=== PATIENT | female | born 1970 | race Caucasian/White ===

== ENCOUNTER 2017-08-02 18:40 | Inpatient (IN) | payer MEDICARE, MEDICAID ==
[~2017-08-02] VITALS: Ht 162.6 cm; Wt 89.9 kg
[~2017-08-02 18:40] MED LIST: ALBU18HF2 IH; ATOR20TA PO; BUDE10.22 INH; CARI350T PO; CLON-529 PO; DIAZ5TAB4 PO; DOCU100C40 PO; METO5TAB98 PO; MOME17SP BOTHNARES; NORCO10T PO; NORE1TAB96 PO; OMEP-84 PO; PROP10TA10 PO; QUET-1 PO; SENN-161 PO; SUMA100T PO; TRAZ-146 PO; VILA40TA PO; ZAFI20TA13 PO; ZES10T PO
[2017-08-02] MEDS ORDERED: methylPREDNISolone sod succ 125mg/2ml vial IV ONE (18:50)
[2017-08-02] MEDS ORDERED: normal saline 1000ML IV soln IVB ONE (18:50)
[2017-08-02] MEDS ORDERED: albuterol 2.5 MG/3 ML nebule NEB ONE ×2 (18:50→20:50)
[2017-08-02] MEDS ORDERED: ipratropium/albuterol 3ml nebule NEB ONE (18:50)
[2017-08-02 19:01] LABS: BASOPHILS # (AUTO) 0.1 X10'3 (0-0.2); BASOPHILS % (AUTO) 0.8 % (0-1); EOSINOPHILS # (AUTO) 0.2 X10'3 (0-0.9); EOSINOPHILS % (AUTO) 1.9 % (0-6); HEMATOCRIT 40.7 % (35.0-45.0); HEMOGLOBIN 13.8 g/dl (12.0-16.0); LYMPHOCYTES # (AUTO) 5.8 X10'3 (1.1-4.8); LYMPHOCYTES % (AUTO) 46.1 % (21-51); MEAN CORPUSCULAR HEMOGLOBIN 29.9 PG (27.0-31.0); MEAN CORPUSCULAR HGB CONC 33.9 % (33.0-36.5); MEAN CORPUSCULAR VOLUME 88.3 FL (78-98); MEAN PLATELET VOLUME 6.5 FL (7.4-10.4); MONOCYTES # (AUTO) 0.7 X10'3 (0-0.9); MONOCYTES % (AUTO) 5.9 % (2-12); NEUTROPHILS # (AUTO) 5.7 X10'3 (1.8-7.7); NEUTROPHILS % (AUTO) 45.3 % (42-75); PLATELET COUNT 360 X10'3 (140-440); RED BLOOD COUNT 4.61 X10'6 (4.20-5.60); RED CELL DISTRIBUTION WIDTH 14.1 % (11.5-14.5); WHITE BLOOD COUNT 12.5 X10'3 (4.5-11.0)
[2017-08-02 19:12] LABS: INR 0.9 INR; PARTIAL THROMBOPLASTIN TIME 24 SECONDS (22-32); PROTHROMBIN TIME 9.4 SECONDS (9.0-12.0)
[2017-08-02 19:15] LABS: ALANINE AMINOTRANSFERASE 19 U/L (12-78); ALBUMIN 3.1 G/DL (3.4-5.0); ALBUMIN/GLOBULIN RATIO 0.7 (1.1-1.5); ALKALINE PHOSPHATASE 85 IU/L (46-116); ANION GAP 14 (8-16); ASPARTATE AMINO TRANSFERASE 14 U/L (10-37); BILIRUBIN,TOTAL 0.2 MG/DL (0.1-1.0); BLOOD UREA NITROGEN 8 MG/DL (7-18); BUN/CREATININE RATIO 8.1 (6.6-38.0); CALCIUM 8.8 MG/DL (8.5-10.1); CHLORIDE 104 MMOL/L (99-107); CREATININE 0.99 MG/DL (0.40-0.90); GLUCOSE 133 MG/DL (70-104); POTASSIUM 3.4 MMOL/L (3.5-5.1); SODIUM 140 MMOL/L (135-145); TOTAL CARBON DIOXIDE 22.4 MMOL/L (24-32); TOTAL PROTEIN 7.7 G/DL (6.4-8.2); eGFR 60 ML/MIN
[2017-08-02] MEDS ORDERED: ondansetron/PF 4mg/2ml inj IV ONE (20:00)
[2017-08-02] MEDS ORDERED: CYAN10007 (21:04)
[2017-08-02] MEDS ORDERED: LAMO150T2 PO (21:04)
[2017-08-02] MEDS ORDERED: ALBU2.5V10 (21:04)
[2017-08-02] MEDS ORDERED: TRAZ-146 PO (21:04)
[2017-08-02] MEDS ORDERED: QUET25TA PO ×2 (21:04)
[2017-08-02] MEDS ORDERED: ALBU18HF2 INH (21:04)
[2017-08-02] MEDS ORDERED: BUDE10.2 INH (21:04)
[2017-08-02] MEDS ORDERED: CHOL10002 PO (21:04)
[2017-08-02] MEDS ORDERED: METF500T PO (21:04)
[2017-08-02] MEDS ORDERED: DIAZ5TAB4 PO (21:04)
[2017-08-02] MEDS ORDERED: MOME17SP BOTHNARES (21:04)
[2017-08-02] MEDS ORDERED: NORE-28 (21:05)
[2017-08-02] MEDS ORDERED: potassium Cl 40MEQ/NS 500ml 500 ML IV PRN ×2 (21:35)
[2017-08-02] MEDS ORDERED: acetaminophen 325mg tablet PO PRN ×2 (21:35)
[2017-08-02] MEDS ORDERED: magnesium hydroxide 30ml (MOM) UD suspension PO PRN (21:35)
[2017-08-02] MEDS ORDERED: mag hydrox/Alum hydrox/simeth 30ml oral suspension PO PRN (21:35)
[2017-08-02] MEDS ORDERED: dextrose 50%-water 50ml dispensing syringe IV PRN ×2 (21:35)
[2017-08-02] MEDS ORDERED: glucagon, human recombinant 1mg kit SUBCUT PRN (21:35)
[2017-08-02] MEDS ORDERED: ondansetron/PF 4mg/2ml inj IV PRN (21:35)
[2017-08-02] MEDS ORDERED: potassium Cl 20 mEq SR tablet PO PRN ×2 (21:35)
[2017-08-02] MEDS ORDERED: MESSAGE TO PHARMACY PO ONE (21:35)
[2017-08-02] MEDS ORDERED: ipratropium/albuterol 3ml nebule NEB PRN (21:35)
[2017-08-02] MEDS ORDERED: dextrose ORAL solution 15 GM/59 ML bottle PO PRN ×2 (21:35)
[2017-08-02] MEDS ORDERED: potassium Cl 20 mEq SR tablet PO STA (21:35)
[2017-08-02] MEDS ORDERED: levoFLOXACIN-Levaquin 500mg/D5 100 ML IV ONE (21:40)
[2017-08-02] MEDS: HYDROcodone/acetaminophen 10/325mg tab PO PRN (22:20)
[2017-08-02] MEDS: normal saline 1000ml 1,000 ML IV SCH (22:20)
[2017-08-02 22:40] VITALS: BP 116/70
[2017-08-02 23:56] LABS: HEMOGLOBIN A1C 6.1 % (4.5-6.2)
[2017-08-03] MEDS: diazepam 5mg tablet PO PRN ×3 (00:10→20:56)
[2017-08-03] MEDS: atorvastatin 20mg tablet PO SCH ×2 (00:10→20:56)
[2017-08-03] MEDS: quetiapine 100mg tablet PO SCH ×2 (00:10→20:56)
[2017-08-03] MEDS: traZODone 50mg tablet PO SCH ×2 (00:10→20:57)
[2017-08-03] MEDS: cloNIDine 0.1 mg tablet PO SCH ×3 (00:11→21:47)
[2017-08-03] MEDS: propranolol 10mg tablet PO SCH ×3 (00:12→18:45)
[2017-08-03] MEDS: methylPREDNISolone sod succ 125mg/2ml vial IV SCH ×4 (01:41→18:46)
[2017-08-03] MEDS: HYDROcodone/acetaminophen 10/325mg tab PO PRN ×3 (06:58→18:45)
[2017-08-03] MEDS: fluticasone nasal spray 16GM bottle NS SCH (07:17)
[2017-08-03] MEDS: enoxaparin 40mg/0.4ml syringe SUBCUT SCH (07:17)
[2017-08-03] MEDS: sennosides 8.6mg tablet PO SCH (07:18)
[2017-08-03] MEDS: montelukast 10mg tablet PO SCH (07:18)
[2017-08-03] MEDS: lisinopril 5mg tablet PO SCH (07:18)
[2017-08-03] MEDS: pantoprazole 40mg Tablet.DR PO SCH (07:19)
[2017-08-03] MEDS: lamoTRIgine 100mg tablet PO SCH (07:19)
[2017-08-03] MEDS: QUEtiapine 25mg tablet PO SCH ×2 (07:19→11:51)
[2017-08-03] MEDS: nicotine 21mg patch - 24 hr TD SCH (07:20)
[2017-08-03 07:30] VITALS: BP 120/76
[2017-08-03 07:51] LABS: BASOPHILS % (AUTO) 0.2 % (0-1); EOSINOPHILS # (AUTO) 0.1 X10'3 (0-0.9); EOSINOPHILS % (AUTO) 1.1 % (0-6); HEMATOCRIT 38.6 % (35.0-45.0); HEMOGLOBIN 12.9 g/dl (12.0-16.0); LYMPHOCYTES # (AUTO) 1.5 X10'3 (1.1-4.8); LYMPHOCYTES % (AUTO) 19.7 % (21-51); MEAN CORPUSCULAR HEMOGLOBIN 30.1 PG (27.0-31.0); MEAN CORPUSCULAR HGB CONC 33.5 % (33.0-36.5); MEAN CORPUSCULAR VOLUME 89.6 FL (78-98); MEAN PLATELET VOLUME 7.3 FL (7.4-10.4); MONOCYTES # (AUTO) 0.1 X10'3 (0-0.9); MONOCYTES % (AUTO) 1.1 % (2-12); NEUTROPHILS % (AUTO) 77.9 % (42-75); PLATELET COUNT 301 X10'3 (140-440); WHITE BLOOD COUNT 7.7 X10'3 (4.5-11.0)
[2017-08-03] MEDS ORDERED: NORETHINDRONE ETHINYL ESTRAD PO SCH ×2 (08:00)
[2017-08-03] MEDS ORDERED: ZAFIRLUKAST 20 MG PO SCH (08:00)
[2017-08-03] MEDS ORDERED: docusate sod 100mg capsule PO PRN (08:00)
[2017-08-03] MEDS ORDERED: Vilazodone Hydrochloride (Viibryd) 40 MG PO SCH (08:00)
[2017-08-03 08:02] LABS: ALBUMIN 2.8 G/DL (3.4-5.0); ANION GAP 11 (8-16); BLOOD UREA NITROGEN 7 MG/DL (7-18); BUN/CREATININE RATIO 7.9 (6.6-38.0); CALCIUM 8.2 MG/DL (8.5-10.1); CHLORIDE 106 MMOL/L (99-107); CREATININE 0.89 MG/DL (0.40-0.90); GLUCOSE 170 MG/DL (70-104); MAGNESIUM 1.7 MG/DL (1.5-2.4); POTASSIUM 4.2 MMOL/L (3.5-5.1); SODIUM 140 MMOL/L (135-145); TOTAL CARBON DIOXIDE 22.6 MMOL/L (24-32); eGFR 68 ML/MIN
[2017-08-03] MEDS: lamoTRIgine 25mg tablet PO SCH (08:09)
[2017-08-03] MEDS: insulin Lispro (HumaLOG) vial - multi-dose SQ SCH ×3 (08:29→18:47)
[2017-08-03 10:00] VITALS: BP 135/75
[2017-08-03] MEDS: normal saline 1000ml 1,000 ML IV SCH ×2 (10:30→20:56)
[2017-08-03 18:00] VITALS: BP 133/66
[2017-08-03] MEDS ORDERED: famotidine/PF 10 mg/ml inj IV SCH (20:20)
[2017-08-03] MEDS ORDERED: diphenhydrAMINE 50 mg/ml inj IV PRN (20:20)
[2017-08-03] MEDS ORDERED: Insulin Detemir pen SQ SCH (21:00)
[2017-08-03] MEDS ORDERED: levoFLOXACIN 750MG TABLET PO SCH (22:00)
[2017-08-03 22:01] VITALS: BP 131/78
[2017-08-04] MEDS: methylPREDNISolone sod succ 125mg/2ml vial IV SCH (02:21)
[2017-08-04] MEDS: normal saline 1000ml 1,000 ML IV SCH ×2 (05:20→06:34)
[2017-08-04 06:00] VITALS: BP 100/64
[2017-08-04] MEDS: nicotine 21mg patch - 24 hr TD SCH (06:28)
[2017-08-04] MEDS: HYDROcodone/acetaminophen 10/325mg tab PO PRN ×2 (06:28→14:52)
[2017-08-04] MEDS: pantoprazole 40mg Tablet.DR PO SCH (06:28)
[2017-08-04 06:34] LABS: BASOPHILS % (AUTO) 0.2 % (0-1); EOSINOPHILS # (AUTO) 0.2 X10'3 (0-0.9); EOSINOPHILS % (AUTO) 1.3 % (0-6); HEMATOCRIT 37.7 % (35.0-45.0); HEMOGLOBIN 12.7 g/dl (12.0-16.0); LYMPHOCYTES # (AUTO) 1.6 X10'3 (1.1-4.8); LYMPHOCYTES % (AUTO) 12.1 % (21-51); MEAN CORPUSCULAR HEMOGLOBIN 29.8 PG (27.0-31.0); MEAN CORPUSCULAR HGB CONC 33.6 % (33.0-36.5); MEAN CORPUSCULAR VOLUME 88.5 FL (78-98); MEAN PLATELET VOLUME 7.1 FL (7.4-10.4); MONOCYTES # (AUTO) 0.5 X10'3 (0-0.9); MONOCYTES % (AUTO) 3.4 % (2-12); NEUTROPHILS # (AUTO) 11.3 X10'3 (1.8-7.7); PLATELET COUNT 275 X10'3 (140-440); RED BLOOD COUNT 4.25 X10'6 (4.20-5.60); RED CELL DISTRIBUTION WIDTH 14.2 % (11.5-14.5); WHITE BLOOD COUNT 13.6 X10'3 (4.5-11.0)
[2017-08-04 06:47] LABS: ALBUMIN 2.7 G/DL (3.4-5.0); ANION GAP 7 (8-16); BLOOD UREA NITROGEN 9 MG/DL (7-18); BUN/CREATININE RATIO 11.5 (6.6-38.0); CALCIUM 8.6 MG/DL (8.5-10.1); CHLORIDE 109 MMOL/L (99-107); CREATININE 0.78 MG/DL (0.40-0.90); GLUCOSE 176 MG/DL (70-104); POTASSIUM 4.2 MMOL/L (3.5-5.1); SODIUM 140 MMOL/L (135-145); eGFR 79 ML/MIN
[2017-08-04] MEDS: insulin Lispro (HumaLOG) vial - multi-dose SQ SCH ×2 (09:35→14:49)
[2017-08-04] MEDS: lisinopril 5mg tablet PO SCH (09:36)
[2017-08-04] MEDS: montelukast 10mg tablet PO SCH (09:36)
[2017-08-04] MEDS: QUEtiapine 25mg tablet PO SCH ×2 (09:36→12:33)
[2017-08-04] MEDS: lamoTRIgine 100mg tablet PO SCH (09:36)
[2017-08-04] MEDS: lamoTRIgine 25mg tablet PO SCH (09:36)
[2017-08-04] MEDS: cloNIDine 0.1 mg tablet PO SCH (09:38)
[2017-08-04] MEDS: diazepam 5mg tablet PO PRN (09:38)
[2017-08-04] MEDS: propranolol 10mg tablet PO SCH (09:38)
[2017-08-04] MEDS: sennosides 8.6mg tablet PO SCH (09:38)
[2017-08-04] MEDS: fluticasone nasal spray 16GM bottle NS SCH (09:42)
[2017-08-04] MEDS: enoxaparin 40mg/0.4ml syringe SUBCUT SCH (09:42)
[2017-08-04 09:56] VITALS: BP 129/74
[2017-08-04] MEDS ORDERED: LEVO500T2 PO (15:05)
[2017-08-04] MEDS ORDERED: ROBDML PO (15:05)
[2017-08-04] MEDS ORDERED: methylPREDNISolone sod succ 125mg/2ml vial IV SCH (20:00)
[2017-08-05] MEDS ORDERED: LACTOBACILLUS RHAMNOSUS GG 15 billion unit sprinkle caps PO SCH (07:30)
== END 2017-08-04 17:30 | disposition home or self-care (01) | DRG 189 ==
LOC: ER 18:41 → ED HOLD 21:32 → ORTHO 4S 22:48
PROVIDERS: ADMIT Internal Medicine; ATTEND Internal Medicine
DX: J96.01 Acute respiratory failure with hypoxia (principal); J44.1 Chronic obstructive pulmonary disease with (acute) exacerbation; E11.9 Type 2 diabetes mellitus without complications; E78.5 Hyperlipidemia, unspecified; E87.6 Hypokalemia; F31.9 Bipolar disorder, unspecified; E66.9 Obesity, unspecified; F41.9 Anxiety disorder, unspecified; M54.9 Dorsalgia, unspecified; E28.2 Polycystic ovarian syndrome; I10 Essential (primary) hypertension; K21.9 Gastro-esophageal reflux disease without esophagitis; F17.210 Nicotine dependence, cigarettes, uncomplicated; F12.90 Cannabis use, unspecified, uncomplicated; Z98.891 History of uterine scar from previous surgery; Z88.1 Allergy status to other antibiotic agents; Z88.2 Allergy status to sulfonamides; Z79.899 Other long term (current) drug therapy; Z79.01 Long term (current) use of anticoagulants; Z79.84 Long term (current) use of oral hypoglycemic drugs; Z79.82 Long term (current) use of aspirin; Z68.34 Body mass index [BMI] 34.0-34.9, adult; Z86.14 Personal history of Methicillin resistant Staphylococcus aureus infection; Z82.5 Family history of asthma and other chronic lower respiratory diseases; Z83.3 Family history of diabetes mellitus; Z82.49 Family history of ischemic heart disease and other diseases of the circulatory system
CPT/HCPCS: 36415; 71045; 80048; 80053; 82948; 83036; 83735; 83880; 85025; 85610; 85730; 87070; 87502; 87503; 93005; 94640; 94760; 96361; 96374; 96375; 99285; J1200; J1650; J1956; J2270; J2405; J2930; J3490; J7030

== ENCOUNTER 2019-11-25 09:29 | Emergency (ER) | payer MEDICARE, MEDICAID ==
[~2019-11-25] VITALS: Ht 162.6 cm; Wt 102.0 kg
[~2019-11-25 09:29] MED LIST changes: -ALBU18HF2 IH; +ALBU18HF2 INH; +ALBU2.5V10; +BUDE10.2 INH; -BUDE10.22 INH; +CHOL10002 PO; +CYAN10007; +LAMO150T2 PO; +METF500T PO; +NORE-28; -NORE1TAB96 PO; +QUET25TA PO; +ROBDML PO; -SENN-161 PO; +SENN-263 PO; -TRAZ-146 PO; +TRAZ-256 PO
--- NOTE | 2019-11-25 10:01 | NUR ---
PT C/O SORE THROAT AND RIGHT SIDE CHEST PAIN THAT RADIATES AROUND TO HER BACK FOR A COUPLE OF DAYS. HX COPD AND ASTHMA, PT IS A SMOKER. ALSO HOSE TENDER COUGH. PT TAKES NORCO FOR CHRONIC PAIN. CHEST PAIN IS WORSE WITH MOVMENT AND BREATHING.
[2019-11-25] MEDS ORDERED: predniSONE 20 mg tablet PO ONE (10:40)
--- NOTE | 2019-11-25 10:46 | NUR ---
MEDICATION SCANNER NOT WORKING.
[2019-11-25] MEDS ORDERED: aspirin 325mg tablet PO ONE (11:00)
[2019-11-25 11:12] LABS: BASOPHILS # (AUTO) 0.1 X10'3 (0-0.2); BASOPHILS % (AUTO) 0.8 % (0-1); EOSINOPHILS # (AUTO) 0.3 X10'3 (0-0.9); EOSINOPHILS % (AUTO) 2.7 % (0-6); HEMATOCRIT 40.8 % (35.0-45.0); HEMOGLOBIN 13.6 g/dl (12.0-16.0); LYMPHOCYTES # (AUTO) 3.8 X10'3 (1.1-4.8); LYMPHOCYTES % (AUTO) 29.8 % (21-51); MEAN CORPUSCULAR HEMOGLOBIN 30.1 PG (27.0-31.0); MEAN CORPUSCULAR HGB CONC 33.4 g/dL (33.0-36.5); MEAN PLATELET VOLUME 6.6 FL (7.4-10.4); MONOCYTES # (AUTO) 1.3 X10'3 (0-0.9); MONOCYTES % (AUTO) 10.5 % (2-12); NEUTROPHILS # (AUTO) 7.2 X10'3 (1.8-7.7); NEUTROPHILS % (AUTO) 56.2 % (42-75); PLATELET COUNT 260 X10'3 (140-440); RED BLOOD COUNT 4.54 X10'6 (4.20-5.60); RED CELL DISTRIBUTION WIDTH 13.9 % (11.5-14.5); WHITE BLOOD COUNT 12.8 X10'3 (4.5-11.0)
[2019-11-25 11:19] LABS: ALANINE AMINOTRANSFERASE 24 U/L (12-78); ALBUMIN 3.4 G/DL (3.4-5.0); ALBUMIN/GLOBULIN RATIO 0.8 (1.1-1.5); ALKALINE PHOSPHATASE 105 IU/L (46-116); ANION GAP 7 (8-16); ASPARTATE AMINO TRANSFERASE 24 U/L (10-37); BILIRUBIN,TOTAL 0.3 MG/DL (0.1-1.0); BLOOD UREA NITROGEN 8 MG/DL (7-18); BUN/CREATININE RATIO 7.3 (6.6-38.0); CALCIUM 9.3 MG/DL (8.5-10.1); CHLORIDE 105 MMOL/L (99-107); CREATININE 1.09 MG/DL (0.40-0.90); GLUCOSE 114 MG/DL (70-104); POTASSIUM 4.6 MMOL/L (3.5-5.1); SODIUM 140 MMOL/L (135-145); TOTAL CARBON DIOXIDE 28.4 MMOL/L (24-32); TOTAL PROTEIN 7.9 G/DL (6.4-8.2); eGFR 53 ML/MIN
[2019-11-25 11:23] LABS: D-DIMER 0.35 MG/L FEU (0-0.50)
[2019-11-25] MEDS ORDERED: ipratropium/albuterol 3ml nebule NEB ONE (11:25)
[2019-11-25] MEDS ORDERED: HYDROcodone/acetaminophen 5mg/325mg tablet PO ONE (11:55)
[2019-11-25] MEDS ORDERED: ondansetron 4mg rapidly disintigrating tab PO ONE (11:55)
[2019-11-25] MEDS ORDERED: AMOX-117 PO (12:02)
[2019-11-25] MEDS ORDERED: PRED20TA PO (12:02)
[2019-11-25 12:13] VITALS: BP 93/66
== END 2019-11-25 12:31 | disposition home or self-care (01) ==
LOC: ER 09:29
DX: J44.1 Chronic obstructive pulmonary disease with (acute) exacerbation (principal); I10 Essential (primary) hypertension; E11.9 Type 2 diabetes mellitus without complications; F41.9 Anxiety disorder, unspecified; F31.9 Bipolar disorder, unspecified; F12.90 Cannabis use, unspecified, uncomplicated; Z88.1 Allergy status to other antibiotic agents; Z88.2 Allergy status to sulfonamides; Z79.2 Long term (current) use of antibiotics; Z79.899 Other long term (current) drug therapy
CPT/HCPCS: 36415; 71045; 80053; 84484; 85025; 85379; 93005; 94640; 99285; J7512; 94760

== ENCOUNTER 2020-01-30 15:09 | Emergency (ER) | payer MEDICARE, MEDICAID ==
[~2020-01-30] VITALS: Ht 162.6 cm; Wt 96.4 kg
[2020-01-30] MEDS ORDERED: dexamethasone sod phosphate 10mg/ml inj IV STA (15:34)
[2020-01-30] MEDS ORDERED: CefTRIAXone 2gm/D5W 50ml 50 ML IV ONE (15:35)
[2020-01-30] MEDS ORDERED: normal saline 1000ML IV soln IV ONE (15:35)
[2020-01-30] MEDS ORDERED: CefTRIAXone inj 2,000 MG in normal saline 100ml IV soln 100 ML IV ONE (15:40)
[2020-01-30 16:22] LABS: BASOPHILS # (AUTO) 0.2 X10'3 (0-0.2); BASOPHILS % (AUTO) 1.3 % (0-1); EOSINOPHILS # (AUTO) 0.3 X10'3 (0-0.9); HEMATOCRIT 41.8 % (35.0-45.0); HEMOGLOBIN 13.9 g/dl (12.0-16.0); LYMPHOCYTES # (AUTO) 3.7 X10'3 (1.1-4.8); LYMPHOCYTES % (AUTO) 24.3 % (21-51); MEAN CORPUSCULAR HEMOGLOBIN 29.8 PG (27.0-31.0); MEAN CORPUSCULAR HGB CONC 33.3 g/dL (33.0-36.5); MEAN CORPUSCULAR VOLUME 89.5 FL (78-98); MEAN PLATELET VOLUME 6.8 FL (7.4-10.4); MONOCYTES # (AUTO) 1.5 X10'3 (0-0.9); MONOCYTES % (AUTO) 9.9 % (2-12); NEUTROPHILS # (AUTO) 9.5 X10'3 (1.8-7.7); NEUTROPHILS % (AUTO) 62.5 % (42-75); PLATELET COUNT 279 X10'3 (140-440); RED BLOOD COUNT 4.67 X10'6 (4.20-5.60); RED CELL DISTRIBUTION WIDTH 13.7 % (11.5-14.5); WHITE BLOOD COUNT 15.1 X10'3 (4.5-11.0)
[2020-01-30 17:05] LABS: CLARITY,URINE CLEAR (Clear); COLOR,URINE STRAW (Yellow); GLUCOSE, URINE NEGATIVE (Neg); KETONES,URINE NEGATIVE (Neg); LEUKOCYTE ESTERASE ,URINE NEGATIVE (Neg); NITRITES, URINE NEGATIVE (Neg); OCCULT BLOOD,URINE NEGATIVE (Neg); PROTEIN,URINE NEGATIVE (Neg); UROBILINOGEN,URINE 0.2 E.U/dL (0.2-1.0)
[2020-01-30] MEDS ORDERED: HYDROcodone/acetaminophen 5mg/325mg tablet PO ONE (17:05)
[2020-01-30 17:07] LABS: UA COLLECTION TYPE CLN CATCH MIDSTREAM
[2020-01-30 17:54] LABS: ALANINE AMINOTRANSFERASE 33 U/L (12-78); ALBUMIN 3.2 G/DL (3.4-5.0); ALBUMIN/GLOBULIN RATIO 0.8 (1.1-1.5); ALKALINE PHOSPHATASE 93 IU/L (46-116); ANION GAP 10 (8-16); ASPARTATE AMINO TRANSFERASE 26 U/L (10-37); BILIRUBIN,TOTAL 0.2 MG/DL (0.1-1.0); BLOOD UREA NITROGEN 11 MG/DL (7-18); BUN/CREATININE RATIO 9.8 (6.6-38.0); CALCIUM 8.1 MG/DL (8.5-10.1); CHLORIDE 108 MMOL/L (99-107); CREATININE 1.12 MG/DL (0.40-0.90); GLUCOSE 140 MG/DL (70-104); POTASSIUM 4.1 MMOL/L (3.5-5.1); SODIUM 142 MMOL/L (135-145); TOTAL CARBON DIOXIDE 23.8 MMOL/L (24-32); TOTAL PROTEIN 7.4 G/DL (6.4-8.2); eGFR 52 ML/MIN
[2020-01-30] MEDS ORDERED: niCARDipine-NS 40mg/200ml IVPB 200 ML IV SCH (17:55)
[2020-01-30] MEDS ORDERED: levoFLOXACIN 750MG TABLET PO ONE (18:15)
[2020-01-30] MEDS ORDERED: LEVO750T21 PO (18:43)
[2020-01-30 19:02] VITALS: BP 132/74
== END 2020-01-30 19:00 | disposition home or self-care (01) ==
LOC: ER 15:14
DX: R50.9 Fever, unspecified (principal); R06.02 Shortness of breath; R42 Dizziness and giddiness; Z20.828 Contact with and (suspected) exposure to other viral communicable diseases; I10 Essential (primary) hypertension; J44.9 Chronic obstructive pulmonary disease, unspecified; E11.9 Type 2 diabetes mellitus without complications; F41.9 Anxiety disorder, unspecified; F31.9 Bipolar disorder, unspecified; F12.90 Cannabis use, unspecified, uncomplicated; Z86.14 Personal history of Methicillin resistant Staphylococcus aureus infection; Z87.440 Personal history of urinary (tract) infections; Z88.1 Allergy status to other antibiotic agents; Z88.2 Allergy status to sulfonamides; Z79.2 Long term (current) use of antibiotics; Z79.899 Other long term (current) drug therapy
CPT/HCPCS: 36415; 71045; 80053; 81003; 83605; 84145; 85025; 87040; 93005; 96361; 96365; 96375; 99285; J0696; J1100; J7030; U0003

== ENCOUNTER 2021-11-04 06:02 | Day surgery (SDC) | payer MEDICARE, MEDICAID ==
[~2021-11-04] VITALS: Ht 162.6 cm; Wt 94.1 kg
[~2021-11-04 06:02] MED LIST changes: -MOME17SP BOTHNARES; +MOME17SP5 BOTHNARES
[2021-11-04 06:15] VITALS: BP 94/56
[2021-11-04] MEDS ORDERED: fentaNYL/PF 50MCG/1 ML 2ML syringe ONE (06:34)
[2021-11-04] MEDS ORDERED: MIDAZolam 1 MG/ML 5ML VIAL ONE (06:34)
[2021-11-04] MEDS ORDERED: LIDOcaine Viscous 15ml cup ONE (06:34)
[2021-11-04] MEDS ORDERED: QUET300T2 PO (06:41)
[2021-11-04] MEDS ORDERED: QUET25TA PO (06:41)
[2021-11-04] MEDS ORDERED: ESTR0.5T PO (06:42)
[2021-11-04] MEDS ORDERED: MODA100T31 PO (06:43)
[2021-11-04] MEDS ORDERED: ATOR20TA10 PO (06:43)
[2021-11-04] MEDS ORDERED: LAMO100T PO (06:44)
[2021-11-04] MEDS ORDERED: CYAN100T47 PO (06:45)
[2021-11-04] MEDS ORDERED: PYRI250T8 PO (06:45)
[2021-11-04] MEDS ORDERED: SENN-263 PO (06:46)
[2021-11-04] MEDS ORDERED: CALC-336 PO (06:46)
[2021-11-04] MEDS ORDERED: HYDR-3686 PO (06:47)
[2021-11-04] MEDS ORDERED: FLUT16SP2 BOTHNARES (06:47)
[2021-11-04] MEDS ORDERED: BUS15T PO (06:48)
[2021-11-04] MEDS ORDERED: GABA-530 PO (06:49)
[2021-11-04] MEDS ORDERED: CETI10CA PO (06:49)
[2021-11-04] MEDS ORDERED: ASCO500C18 PO (06:50)
[2021-11-04 07:45] VITALS: BP 142/75
[2021-11-04 07:55] VITALS: BP 105/76
[2021-11-04 08:05] VITALS: BP 107/73
[2021-11-04 08:12] VITALS: BP 109/72
== END 2021-11-04 08:40 | disposition home or self-care (01) ==
LOC: GI LAB 06:02
PROVIDERS: ATTEND Internal Medicine Gastroenterology
DX: Z12.11 Encounter for screening for malignant neoplasm of colon (principal); R11.0 Nausea; K63.5 Polyp of colon; K21.00 Gastro-esophageal reflux disease with esophagitis, without bleeding; K29.70 Gastritis, unspecified, without bleeding; I10 Essential (primary) hypertension; J45.909 Unspecified asthma, uncomplicated; E11.9 Type 2 diabetes mellitus without complications; F17.210 Nicotine dependence, cigarettes, uncomplicated; M48.00 Spinal stenosis, site unspecified; Z88.1 Allergy status to other antibiotic agents; Z88.2 Allergy status to sulfonamides; Z79.899 Other long term (current) drug therapy; Z79.84 Long term (current) use of oral hypoglycemic drugs
CPT/HCPCS: 43239; 45385; 88305; 99153; C1773; G0500; J2250; J3010; J7030; Z7512; 99152; A4620

== ENCOUNTER 2021-12-29 10:36 | Emergency (ER) | payer MEDICARE, MEDICAID ==
[~2021-12-29] VITALS: Ht 162.6 cm; Wt 100.0 kg
[~2021-12-29 10:36] MED LIST changes: +ASCO500C18 PO; +ATOR20TA10 PO; +BUS15T PO; +CALC-336 PO; -CARI350T PO; +CETI10CA PO; -CLON-529 PO; +CYAN100T47 PO; -DIAZ5TAB4 PO; +ESTR0.5T PO; +FLUT16SP2 BOTHNARES; +GABA-530 PO; +HYDR-3686 PO; +LAMO100T PO; -LAMO150T2 PO; -METO5TAB98 PO; +MODA100T31 PO; -MOME17SP5 BOTHNARES; -NORE-28; -PROP10TA10 PO; +PYRI250T8 PO; -QUET-1 PO; +QUET300T2 PO; -ROBDML PO; -TRAZ-256 PO; -ZES10T PO
[2021-12-29 10:51] VITALS: BP 122/76
[2021-12-29] MEDS ORDERED: DOXY-1 PO (11:35)
[2021-12-29] MEDS ORDERED: DOXYCYCLINE 100MG CAPSULE PO STA (11:35)
== END 2021-12-29 11:50 | disposition home or self-care (01) ==
LOC: VAS 10:39
DX: L03.317 Cellulitis of buttock (principal); I10 Essential (primary) hypertension; J44.9 Chronic obstructive pulmonary disease, unspecified; E11.9 Type 2 diabetes mellitus without complications; F12.90 Cannabis use, unspecified, uncomplicated; Z87.440 Personal history of urinary (tract) infections; Z86.14 Personal history of Methicillin resistant Staphylococcus aureus infection; Z88.1 Allergy status to other antibiotic agents; Z88.2 Allergy status to sulfonamides; Z79.899 Other long term (current) drug therapy
CPT/HCPCS: 99283

== ENCOUNTER 2023-09-09 07:53 | Day surgery (SDC) | payer MEDICARE, MEDICAID ==
[2023-09-06 15:30] LABS: BASOPHILS # (AUTO) 0.1 X10'3 (0-0.2); BASOPHILS % (AUTO) 0.9 % (0-1); EOSINOPHILS # (AUTO) 0.3 X10'3 (0-0.9); EOSINOPHILS % (AUTO) 2.4 % (0-6); LYMPHOCYTES # (AUTO) 4.5 X10'3 (1.1-4.8); LYMPHOCYTES % (AUTO) 40.7 % (21-51); MEAN CORPUSCULAR HEMOGLOBIN 27.2 PG (27.0-31.0); MEAN CORPUSCULAR HGB CONC 32.8 g/dL (33.0-36.5); MEAN PLATELET VOLUME 6.2 FL (7.4-10.4); MONOCYTES # (AUTO) 1.2 X10'3 (0-0.9); MONOCYTES % (AUTO) 10.9 % (2-12); NEUTROPHILS % (AUTO) 45.1 % (42-75); PRE OP HEMATOCRIT 35.1 % (35.0-45.0); PRE OP HEMOGLOBIN 11.5 g/dL (12.0-16.0); PRE OP PLATELET COUNT 302 X10'3 (140-440); PRE OP WHITE BLOOD COUNT 11.1 10'3 (4.8-10.8); RED BLOOD COUNT 4.22 X10'6 (4.20-5.60); RED CELL DISTRIBUTION WIDTH 16.9 % (11.5-14.5)
[2023-09-06 15:46] LABS: ALBUMIN 3.6 G/DL (3.4-5.0); ALBUMIN/GLOBULIN RATIO 0.9 (1.1-1.5); ALKALINE PHOSPHATASE 97 IU/L (46-116); BLOOD UREA NITROGEN 11 MG/DL (7-18); BUN/CREATININE RATIO 12.6 (10.0-20.0); CALCIUM 8.9 MG/DL (8.5-10.1); CHLORIDE 107 MMOL/L (99-107); CREATININE 0.87 MG/DL (0.40-0.90); PRE OP ALT 34 U/L (30-65); PRE OP ANION GAP 9 (8-16); PRE OP AST 22 U/L (10-37); PRE OP BILIRUB, TOTAL 0.3 MG/DL (0.0-1.0); PRE OP GLUCOSE 107 MG/DL (70-104); PRE OP POTASSIUM 4.1 MMOL/L (3.4-5.1); PRE OP SODIUM 143 MMOL/L (135-145); TOTAL CARBON DIOXIDE 27.5 MMOL/L (24-32); TOTAL PROTEIN 7.7 G/DL (6.4-8.2); eGFR 68 ML/MIN
[2023-09-09] VITALS (9 sets, daily range): BP systolic 102–120; BP diastolic 66–81; PULSE 81–95; RESP 14–16; TEMP 96.9; O2SAT 93–98
[~2023-09-09] VITALS: Ht 162.6 cm; Wt 200.0 kg
[~2023-09-09 07:53] MED LIST changes: -ASCO500C18 PO; -ATOR20TA PO; +BACL-11 PO; -BUDE10.2 INH; -CALC-336 PO; -CYAN10007; -ESTR0.5T PO; +ESTR0.5T36 PO; +FLUT1BLS16 INH; +NICO-631 TD; -QUET25TA PO; +TRAZODONE PO; +ZAFI20TA PO; -ZAFI20TA13 PO; +albuterol 2.5 MG/3 ML nebule NEB PRN
[2023-09-09] MEDS: ringers solution, lacted 1,000 ML IV SCH (08:44)
[2023-09-09] MEDS: famotidine 20mg tablet PO ONE (08:46)
[2023-09-09] MEDS ORDERED: sevoflurane 250ml liquid IH ONE (10:06)
[2023-09-09] MEDS ORDERED: fentaNYL/PF 50MCG/1 ML 2ML syringe ONE (10:12)
[2023-09-09] MEDS ORDERED: midazolam 1 mg/ML 2ml injection ONE (10:12)
[2023-09-09] MEDS ORDERED: propofol inj 20 ML IV ONE (10:12)
[2023-09-09] MEDS ORDERED: rocuronium 10mg/ml inj IV ONE (10:12)
[2023-09-09] MEDS ORDERED: morphine 2 MG/ML inj. syringe IV PRN (10:50)
[2023-09-09] MEDS ORDERED: meperidine/PF 25mg/ml syringe IV PRN ×3 (10:50)
[2023-09-09] MEDS ORDERED: ringers solution, lacted 1,000 ML IV SCH (10:50)
[2023-09-09] MEDS ORDERED: ondansetron/PF 4mg/2ml inj IV PRN (10:50)
[2023-09-09] MEDS ORDERED: dexamethasone sod phosphate 4mg/ml inj. ONE (11:00)
[2023-09-09] MEDS ORDERED: ondansetron/PF 4mg/2ml inj ONE (11:00)
[2023-09-09] MEDS ORDERED: neostigmine methylsulfate 1 MG/ML 10ml vial ONE (11:01)
[2023-09-09] MEDS ORDERED: glycopyrrolate 0.2mg/ml inj ONE (11:01)
[2023-09-09] MEDS: morphine 4 MG/ML inj SYRINge IV PRN (11:54)
== END 2023-09-09 12:25 | disposition home or self-care (01) ==
LOC: PAS 07:53
PROVIDERS: ATTEND Internal Medicine Critical Care Medicine
DX: R91.8 Other nonspecific abnormal finding of lung field (principal); G47.30 Sleep apnea, unspecified; E11.9 Type 2 diabetes mellitus without complications; J43.9 Emphysema, unspecified; E66.9 Obesity, unspecified; Z68.45 Body mass index [BMI] 70 or greater, adult; K21.9 Gastro-esophageal reflux disease without esophagitis; F41.9 Anxiety disorder, unspecified; G43.909 Migraine, unspecified, not intractable, without status migrainosus; F43.10 Post-traumatic stress disorder, unspecified; G47.00 Insomnia, unspecified; G89.29 Other chronic pain; F31.9 Bipolar disorder, unspecified; E78.5 Hyperlipidemia, unspecified; F17.210 Nicotine dependence, cigarettes, uncomplicated; Z88.2 Allergy status to sulfonamides; Z88.1 Allergy status to other antibiotic agents; Z88.8 Allergy status to other drugs, medicaments and biological substances; Z98.1 Arthrodesis status; Z90.710 Acquired absence of both cervix and uterus; Z98.890 Other specified postprocedural states; Z79.899 Other long term (current) drug therapy; Z86.14 Personal history of Methicillin resistant Staphylococcus aureus infection
CPT/HCPCS: 31624; 31628; 31629; 31632; 31633; 31652; 36415; 71045; 71250; 80053; 82948; 85025; 87015; 87070; 87102; 87116; 87206; 94760; J1100; J2250; J2270; J2405; J2704; J2710; J3010; J3490; J7120; Z7506; Z7508; Z7512; 31622; 31625; 31626; 31627; 31653; 31654; 88173; 88305; 88342; A4618

== ENCOUNTER 2024-01-03 19:34 | Emergency (ER) | payer MEDICARE, MEDICAID ==
[~2024-01-03] VITALS: Ht 162.6 cm; Wt 93.2 kg
[~2024-01-03 19:34] MED LIST changes: -albuterol 2.5 MG/3 ML nebule NEB PRN
[2024-01-03 20:47] LABS: BILIRUBIN,URINE NEGATIVE (Neg); CLARITY,URINE SLIGHTLY CLOUDY (Clear); COLOR,URINE STRAW (Yellow); GLUCOSE, URINE NEGATIVE (Neg); KETONES,URINE NEGATIVE (Neg); LEUKOCYTE ESTERASE ,URINE LARGE (Neg); NITRITES, URINE NEGATIVE (Neg); OCCULT BLOOD,URINE LARGE (Neg); PROTEIN,URINE NEGATIVE (Neg); UROBILINOGEN,URINE 0.2 E.U/dL (0.2-1.0)
[2024-01-03 20:48] LABS: UA COLLECTION TYPE NON-SPECIFIED
[2024-01-03 21:01] LABS: BACTERIA,URINE 2+ /HPF (Neg); MUCUS STRANDS FEW /LPF (Neg); SQUAMOUS EPITHELIAL CELL,UR FEW /LPF (FEW); TRANSITIONAL EPI CELLS,URINE FEW /HPF; WBC,URINE 30-50 /HPF (0-4)
[2024-01-03 21:02] LABS: RENAL CELLS, URINE FEW /HPF
[2024-01-03] MEDS ORDERED: PHEN-716 PO (22:11)
[2024-01-03] MEDS: phenazopyridine 100mg tablet PO ONE (22:24)
[2024-01-03] MEDS: CefTRIAXone 1000mg IM Kit (w/lidocaine diluent) IM ONE (22:24)
[2024-01-03 23:00] VITALS: BP 140/80; PULSE 92; RESP 16; TEMP 98; O2SAT 97
== END 2024-01-03 23:02 | disposition home or self-care (01) ==
LOC: ER 19:34
DX: N39.0 Urinary tract infection, site not specified (principal); I10 Essential (primary) hypertension; J44.9 Chronic obstructive pulmonary disease, unspecified; E11.9 Type 2 diabetes mellitus without complications; F41.9 Anxiety disorder, unspecified; F32.A Depression, unspecified; F12.90 Cannabis use, unspecified, uncomplicated; Z88.2 Allergy status to sulfonamides; Z88.8 Allergy status to other drugs, medicaments and biological substances; Z79.899 Other long term (current) drug therapy; Z79.84 Long term (current) use of oral hypoglycemic drugs
CPT/HCPCS: 81001; 87088; 87186; 96372; 99283; J0696; 87077